=== PATIENT | female | born 1980 | race Caucasian/White ===

== ENCOUNTER 2023-10-28 06:54 | Emergency (ER) | payer MEDICAID ==
[~2023-10-28] VITALS: Ht 170.2 cm; Wt 70.9 kg
[2023-10-28 06:58] VITALS: TEMP 98.5
[2023-10-28 07:34] LABS: BASOPHILS % (AUTO) 0.4 % (0.0-2.0); EOSINOPHILS % (AUTO) 0.5 % (1.0-6.0); HEMATOCRIT 40.4 % (36-46); HEMOGLOBIN 13.3 g/dL (12.0-16.0); LYMPHOCYTES # (AUTO) 1.6 K/uL (1.0-4.8); MEAN CORPUSCULAR HEMOGLOBIN 28.9 pg (26.0-34.0); MEAN CORPUSCULAR HGB CONC 32.9 G/dL (31.0-37.0); MEAN CORPUSCULAR VOLUME 88 fL (80-100); MONOCYTES # (AUTO) 0.5 K/uL (0.1-1.0); MONOCYTES % (AUTO) 7.2 % (2.0-9.0); NEUTROPHILS # (AUTO) 5.2 K/uL (1.8-7.7); NEUTROPHILS % (AUTO) 69.9 % (40.0-70.0); PLATELET COUNT (AUTO) 323 K/uL (150-450); RED CELL DISTRIBUTION WIDTH 14.1 % (11.5-14.5); WHITE BLOOD COUNT (AUTO) 7.4 K/uL (4.5-11.0)
[2023-10-28 07:39] LABS: ANION GAP 8 mmol/L (8-16); CALCIUM, TOTAL 8.4 mg/dL (8.8-10.5); CARBON DIOXIDE 26 mmol/L (22-29); CHLORIDE 101 mmol/L (98-107); CREATININE 0.75 mg/dL (0.60-1.30); GLOMERULAR FILTR. RATE CALC > 60 mL/min (>60); GLUCOSE,RANDOM 101 mg/dL (70-110); POTASSIUM 3.7 mmol/L (3.5-5.1); SODIUM SERUM 135 mmol/L (136-145); UREA NITROGEN, BLOOD 8 mg/dL (7-18)
[2023-10-28 07:45] LABS: ALANINE AMINOTRANSFERASE 25 U/L (12-78); ALBUMIN 3.6 g/dL (3.4-5.0); ALKALINE PHOSPHATASE 94 U/L (46-116); ASPARTATE AMINOTRANSFERASE 18 U/L (15-37); BILIRUBIN,TOTAL 0.8 mg/dL (0.1-1.0); TOTAL PROTEIN, SERUM 8.3 g/dL (6.4-8.2)
[2023-10-28] MEDS ORDERED: ACETAMINOPHEN 500 MG TABLET PO ONE (07:45)
[2023-10-28 07:47] LABS: TROPONIN I-HIGH SENSITIVITY 9 ng/L (<51)
[2023-10-28 09:43] LABS: TROPONIN I-HIGH SENSITIVITY 9 ng/L (<51)
[2023-10-28 10:10] VITALS: BP 125/32; PULSE 81; RESP 22
== END 2023-10-28 10:12 | disposition home or self-care (01) ==
LOC: EMS 06:55
DX: R07.89 Other chest pain (principal); Z98.890 Other specified postprocedural states
CPT/HCPCS: 71045; 80053; 83880; 84484; 84703; 85025; 93005; 99285; 36415-L1; 36415-TC

== ENCOUNTER 2025-02-24 12:41 | Emergency (ER) | payer MEDICAID, OTHER ==
[~2025-02-24] VITALS: Ht 167.6 cm; Wt 68.2 kg
[2025-02-24 13:06] VITALS: TEMP 98.2
[2025-02-24 13:40] VITALS: BP 127/87; PULSE 76; RESP 18; O2SAT 100
[2025-02-24] MEDS: AMOX TR/POT CLAV 875 MG/125 MG TABLET PO ONE (13:48)
[2025-02-24] MEDS: IBUPROFEN 400 MG TABLET PO ONE (13:48)
[2025-02-24] MEDS: ACETAMINOPHEN 325 MG TABLET PO ONE (13:49)
[2025-02-24] MEDS ORDERED: AMOX-457 PO (14:02)
== END 2025-02-24 14:38 | disposition home or self-care (01) ==
LOC: EMS 12:43
DX: L03.213 Periorbital cellulitis (principal)
CPT/HCPCS: 99284; Z7502; Z7610